=== PATIENT | male | born 1980 | race American Indian/Alaskan Native ===

== ENCOUNTER 2018-10-10 14:22 | Emergency (ER) | payer MEDICAID ==
--- NOTE | 2018-10-10 14:56 | Event Note ---
ED Screening Note ED Screening Note: pt sent from cards scheduled eye surgery in am This initial assessment/diagnostic orders/clinical plan/treatment(s) is/are subject to change based on patients health status, clinical progression and re- assessment by fellow clinical providers in the ED. Further treatment and workup at subsequent clinical providers discretion. Patient/guardian urged not to elope from the ED as their condition may be serious if not clinically assessed and managed. Initial orders include:
--- NOTE | 2018-10-10 15:22 | XRay Report ---
ROUTINE CHEST, TWO VIEWS: HISTORY: Short of breath. The trachea, heart, mediastinal contour, lung fritz and bony thorax are unremarkable. IMPRESSION: Unremarkable chest x-ray.
[2018-10-10 15:29] LABS: Hematocrit 38.9 % (35.5-45.6); Hemoglobin 13.7 gm/dl (11.8-15.2); Mean Corpuscular HGB Conc 35 % (32-34); Mean Corpuscular Volume 88 fl (84-94); Platelet Count 238 K/mm3 (140-440); Red Blood Count 4.43 M/mm3 (3.65-5.03); Red Cell Distribution Width 14.2 % (13.2-15.2)
[2018-10-10 15:57] LABS: Alanine Aminotransferase 18 units/L (7-56); Albumin 4.1 g/dL (3.9-5); BUN/Creatinine Ratio 9; Blood Urea Nitrogen 9 mg/dL (9-20); Calcium 9.1 mg/dL (8.4-10.2); Hemolysis Index 11
--- NOTE | 2018-10-10 18:33 | Emergency Department Report ---
HPI - General Chief Complaint: High BP Time Seen by Provider: 10/10/18 14:56 - HPI HPI: Room 40 The patient is a 38-year-old male presenting with chief complaint of hypertension. The patient states he is scheduled for eye surgery in the morning needed medical clearance to have surgery performed. The patient went to see Dr. Abiel Negron today and was told his blood pressure was elevated and subsequently sent to the ED for evaluation. The patient states he had an episode of shortness of breath lasted 30-60 minutes and he felt dizzy but those symptoms have resolved. Patient denied ever having chest pain or cough. When asked how he is feeling currently patient replies "I feel wonderful." Location: [See above] Duration: [See above] Quality: [See above] Severity: [See above] Modifying factors: [see above] Context: [see above] Mode of transportation: [not driving] ED Past Medical Hx - Past Medical History Hx Hypertension: Yes Hx Sickle Cell Disease: Yes (trait) - Surgical History Past Surgical History?: No Additional Surgical History: left eye - Family History Family history: no significant - Social History Smoking Status: Former Smoker (none since 2009) Substance Use Type: Alcohol (occasional), Marijuana ED Review of Systems ROS: Stated complaint: BP HIGH Other details as noted in HPI Constitutional: no symptoms reported Eyes: other ENT: denies: throat pain Respiratory: shortness of breath Cardiovascular: denies: chest pain Endocrine: no symptoms reported Gastrointestinal: denies: abdominal pain Genitourinary: denies: dysuria Musculoskeletal: denies: back pain Skin: denies: lesions Neurological: other (dizziness) Physical Exam - Physical Exam Physical Exam: GENERAL: The patient is well-developed well-nourished male lying on stretcher not appearing to be in acute distress. [] HEENT: Normocephalic. Atraumatic. Extraocular motions are intact. Patient has moist mucous membranes. NECK: Supple. Trachea midline CHEST/LUNGS: There is no respiratory distress noted. HEART/CARDIOVASCULAR: Regular. There is no tachycardia. ABDOMEN: There is no abdominal distention. SKIN: There is no diaphoresis. NEURO: The patient is awake, alert, and oriented. The patient is cooperative. The patient has no focal neurologic deficits. The patient has normal speech MUSCULOSKELETAL: There is no evidence of acute injury. ED Course Blood pressure 139/80 Dr. Esparza patient's chart. Respiratory rate 18, heart rate 55, temperature 98.3F, SPO2 98% room air ED Medical Decision Making - Lab Data Result diagrams: 10/10/18 15:16 10/10/18 15:16 - EKG Data -: EKG Interpreted by Me EKG shows normal: sinus rhythm Rate: bradycardia (53 bpm) - EKG Data When compared to previous EKG there are: no significant change - Differential Diagnosis hypertension, hypertensive urgency, PE Critical care attestation.: If time is entered above; I have spent that time in minutes in the direct care of this critically ill patient, excluding procedure time. ED Disposition Clinical Impression: Dizziness, Shortness of breath Disposition: Z-07 ELOPED Is pt being admited?: No Does the pt Need Aspirin: No Condition: Undetermined [facility] Care Provider[facility] - 3-5 Days Time of Disposition: 18:37 (patient eloped)
== END 2018-10-10 18:30 | disposition left against medical advice (07) ==
LOC: ED 14:22
DX: R42 Dizziness and giddiness (principal); R06.02 Shortness of breath; I10 Essential (primary) hypertension; F12.10 Cannabis abuse, uncomplicated; Z87.891 Personal history of nicotine dependence
CPT/HCPCS: 36415; 71046; 80053; 83880; 84484; 85027; 85379; 93005; 93010; 99283